=== PATIENT | female | born 1925 | race American Indian/Alaskan Native ===

== ENCOUNTER 2017-10-12 11:15 | Outpatient (CLI) | payer MEDICARE ==
--- NOTE | 2017-10-12 12:01 | XRay Report ---
ROUTINE CHEST, TWO VIEWS: HISTORY: Community acquired pneumonia. The trachea, heart, mediastinal contour, lung [place] and bony thorax are unremarkable. IMPRESSION: No acute cardiopulmonary process.
== END 2017-10-12 11:16 | disposition home or self-care (01) ==
LOC: SPVIMAG 11:15
PROVIDERS: ATTEND Internal Medicine
DX: J18.9 Pneumonia, unspecified organism (principal)
CPT/HCPCS: 71046